=== PATIENT | female | born 1980 | race Asian ===

== ENCOUNTER 2016-12-15 11:35 | Emergency (ER) | payer OTHER ==
[~2016-12-15] VITALS: Ht 162.6 cm; Wt 79.7 kg
[2016-12-15 13:56] VITALS: BP 138/84
== END 2016-12-15 13:57 | disposition home or self-care (01) ==
LOC: EME 11:35
DX: R51 Headache (principal)
CPT/HCPCS: 70450; 99281; 99283

== ENCOUNTER 2017-05-03 18:24 | Emergency (ER) | payer OTHER ==
[~2017-05-03] VITALS: Ht 162.6 cm; Wt 73.9 kg
[2017-05-03 19:41] LABS: HEMATOCRIT 39.6 % (36.0-46.0); MCH 25.3 PG (29.0-34.0); MCHC 32.8 G/DL (30.0-36.0); MCV 77.2 FL (83-99); PLATELET COUNT 231 K/uL (156-360); RBC DIS.WIDTH-CV 13.2 % (11.8-14.6); RBC DIS.WIDTH-SD 36.7 % (39-53); RED BLOOD COUNT 5.13 M/uL (3.80-5.20); WHITE BLOOD COUNT 8.1 K/uL (4.1-10.2)
[2017-05-03 19:55] LABS: CHLORIDE 107 mEq/L (99-109); POTASSIUM 3.8 mEq/L (3.7-5.4); SODIUM 139 mEq/L (136-147)
[2017-05-03 19:57] LABS: GLUCOSE 108 mg/dL (70-99)
[2017-05-03 19:59] LABS: ANION GAP 7 MEQ/L (2-14); TOTAL BILIRUBIN 0.3 mg/dL (0.0-1.0)
[2017-05-03 20:01] LABS: ALKALINE PHOSPHATASE 60 IU/L (3-129); GFR ESTIMATE (CALCULATED) > 59 mL/min/
[2017-05-03 20:02] LABS: UREA NITROGEN (BUN) 8 mg/dL (9-23)
[2017-05-03 20:03] LABS: DIRECT BILIRUBIN 0.1 mg/dL (0.0-0.3)
[2017-05-03 20:04] LABS: LIPASE 30 U/L (1.0-51.0)
[2017-05-03 20:11] LABS: QUANTITATIVE HCG < 4.0 MIU/ML
[2017-05-03 21:09] LABS: ADD MIUA? YES; BILIRUBIN NEGATIVE; BLOOD SMALL; COLOR YELLOW ((YELLOW)); GLUCOSE (STRIP) NEGATIVE; KETONES NEGATIVE; LEUKOCYTES LARGE; NITRITE NEGATIVE; PROTEIN (STRIP) NEGATIVE; SPECIFIC GRAVITY 1.008 (1.000-1.030); UROBILINOGEN 0.2 MG/DL (0.2-1.0)
[2017-05-03 21:36] LABS: BACTERIA RARE /HPF; EPITHELIAL CELLS 1+ /HPF; MUCUS TRACE /LPF; UCUL ADDED? YES; WHITE BLOOD CELLS 20-30 /HPF (0-5)
[2017-05-03] MEDS ORDERED: CIPRO500 MG PO (22:23)
[2017-05-03] MEDS ORDERED: PERCOCET 5/31 TABLET PO (22:25)
[2017-05-03] MEDS ORDERED: ZOFRAN4 MG PO (22:25)
[2017-05-03 23:38] VITALS: BP 119/78
[2017-05-04] MEDS ORDERED: SPRINTEC1 EACH PO (14:51)
[2017-05-04] MEDS ORDERED: ERGOCALCIF50000 UNIT PO (14:52)
[2017-05-04] MEDS ORDERED: MULTIVITAMIN1 EAC2 PO (14:52)
[2017-05-04] MEDS ORDERED: IRON240 MG PO (14:53)
== END 2017-05-03 23:42 | disposition home or self-care (01) ==
LOC: EME 18:24
PROVIDERS: Emergency Medicine
DX: N10 Acute pyelonephritis (principal); Z90.721 Acquired absence of ovaries, unilateral
CPT/HCPCS: 74176; 80048; 80076; 81003; 83690; 84702; 85027; 87086; 99281; 99284; J0696; J7050

== ENCOUNTER 2017-05-05 07:48 | Inpatient (IN) | payer OTHER ==
[~2017-05-05] VITALS: Ht 162.6 cm; Wt 75.4 kg
[~2017-05-05 07:48] MED LIST: CIPRO500 MG PO; ERGOCALCIF50000 UNIT PO; IRON240 MG PO; MULTIVITAMIN1 EAC2 PO; PERCOCET 5/31 TABLET PO; SPRINTEC1 EACH PO; ZOFRAN4 MG PO
[2017-05-05 08:49] LABS: EOSINOPHIL COUNT 0.1 K/uL (0-0.3); HEMATOCRIT 39.4 % (36.0-46.0); IMMATURE GRANULOCYTE (%) 0.3 % (0.0-0.7); LYMPHOCYTE COUNT 2.3 K/uL (1.0-2.8); MCH 24.7 PG (29.0-34.0); MCHC 31.7 G/DL (30.0-36.0); MCV 77.7 FL (83-99); MONOCYTE (%) 5.7 % (3-12); MONOCYTE COUNT 0.4 K/uL (0-0.8); PLATELET COUNT 233 K/uL (156-360); RBC DIS.WIDTH-CV 13.3 % (11.8-14.6); RBC DIS.WIDTH-SD 37.6 % (39-53); RED BLOOD COUNT 5.07 M/uL (3.80-5.20); WHITE BLOOD COUNT 6.8 K/uL (4.1-10.2)
[2017-05-05 09:04] LABS: ADD MIUA? YES; BILIRUBIN NEGATIVE; BLOOD MODERATE; COLOR YELLOW ((YELLOW)); GLUCOSE (STRIP) NEGATIVE; KETONES NEGATIVE; LEUKOCYTES LARGE; NITRITE NEGATIVE; PROTEIN (STRIP) NEGATIVE; SPECIFIC GRAVITY 1.015 (1.000-1.030); UROBILINOGEN 0.2 MG/DL (0.2-1.0)
[2017-05-05 09:06] LABS: CHLORIDE 105 mEq/L (99-109); POTASSIUM 4.1 mEq/L (3.7-5.4); SODIUM 137 mEq/L (136-147)
[2017-05-05 09:07] LABS: GLUCOSE 98 mg/dL (70-99)
[2017-05-05 09:09] LABS: ANION GAP 10 MEQ/L (2-14)
[2017-05-05 09:11] LABS: GFR ESTIMATE (CALCULATED) > 59 mL/min/
[2017-05-05 09:12] LABS: UREA NITROGEN (BUN) 12 mg/dL (9-23)
[2017-05-05 09:21] LABS: EPITHELIAL CELLS 2+ /HPF; MUCUS 1+ /LPF
[2017-05-05 09:22] LABS: BACTERIA 1+ /HPF; OTHER BUDDING YEAST RARE; RED BLOOD CELLS 0-5 /HPF (0-5); UCUL ADDED? YES; WHITE BLOOD CELLS 40-50 /HPF (0-5)
[2017-05-05] MEDS ORDERED: ADVIL200 MG PO (11:03)
[2017-05-05] MEDS ORDERED: ARTIFICIAL TEAR1510 BOTH EYES (11:04)
[2017-05-05 16:00] VITALS: BP 134/78
[2017-05-05 19:24] VITALS: BP 128/62
[2017-05-05 23:14] VITALS: BP 121/65
[2017-05-06 03:43] VITALS: BP 112/59
[2017-05-06 05:55] LABS: EOSINOPHIL (%) 1.4 % (0-5); EOSINOPHIL COUNT 0.1 K/uL (0-0.3); HEMATOCRIT 39.9 % (36.0-46.0); IMMATURE GRANULOCYTE (%) 0.2 % (0.0-0.7); INSTRUMENT ABS NEUTROPHIL CT 2.3 K/uL; LYMPHOCYTE COUNT 3.6 K/uL (1.0-2.8); MCH 25.6 PG (29.0-34.0); MCHC 32.6 G/DL (30.0-36.0); MCV 78.5 FL (83-99); MONOCYTE (%) 5.8 % (3-12); MONOCYTE COUNT 0.4 K/uL (0-0.8); NEUTROPHIL (%) 35.7 % (45-76); NEUTROPHIL COUNT 2.3 K/uL (1.8-6.4); PLATELET COUNT 236 K/uL (156-360); RBC DIS.WIDTH-CV 13.3 % (11.8-14.6); RBC DIS.WIDTH-SD 38.3 % (39-53); RED BLOOD COUNT 5.08 M/uL (3.80-5.20); WHITE BLOOD COUNT 6.4 K/uL (4.1-10.2)
[2017-05-06 07:35] LABS: ANION GAP 9 MEQ/L (2-14); CHLORIDE 108 MEQ/L (99-109); GFR ESTIMATE (CALCULATED) > 59 mL/min/; GLUCOSE 89 mg/dL (70-99); POTASSIUM 3.8 MEQ/L (3.7-5.4); SAMPLE HEMOLYSIS CHECK 0; SAMPLE ICTERIC CHECK 0; SAMPLE LIPEMIA CHECK 0; SODIUM 141 MEQ/L (136-147); UREA NITROGEN (BUN) 6 mg/dL (9-23)
[2017-05-06 08:00] VITALS: BP 139/73
[2017-05-06 12:10] VITALS: BP 131/77
[2017-05-06 15:20] VITALS: BP 124/75
[2017-05-07 00:06] VITALS: BP 147/79
[2017-05-07 07:33] VITALS: BP 125/82
[2017-05-07] MEDS ORDERED: SENNA-DOCUSATE1 EAC1 PO (15:13)
[2017-05-07] MEDS ORDERED: OXYCONTIN10 MG PO ×2 (15:14→15:15)
[2017-05-07] MEDS ORDERED: PERCOCET 5/31 TABLET PO ×2 (15:14→15:15)
[2017-05-07 15:15] VITALS: BP 132/76
== END 2017-05-07 18:27 | disposition home or self-care (01) | DRG 690 ==
LOC: EME 07:48 → 2EAST 10:01 → EDOF 10:01 → ENRESERV 10:04 → 2EAST 12:28
PROVIDERS: Emergency Medicine; Internal Medicine
DX: N10 Acute pyelonephritis (principal); N30.01 Acute cystitis with hematuria; I95.9 Hypotension, unspecified; K43.9 Ventral hernia without obstruction or gangrene; G43.909 Migraine, unspecified, not intractable, without status migrainosus; Z16.24 Resistance to multiple antibiotics; Z87.440 Personal history of urinary (tract) infections; Z88.2 Allergy status to sulfonamides; Z83.3 Family history of diabetes mellitus; Z82.49 Family history of ischemic heart disease and other diseases of the circulatory system; Z80.3 Family history of malignant neoplasm of breast
CPT/HCPCS: 74176; 80048; 80076; 81003; 83605; 83690; 84702; 85025; 85027; 87040; 87086; 93971; 96365; 99281; 99284; 99285; J0696; J1335; J2543; J7030; J7050